=== PATIENT | female | born 1990 | race Caucasian/White ===

== ENCOUNTER → 2024-07-04 06:51 | Outpatient (REF) | payer BC, SELFPAY | LOC: PNTC 06:51 | PROVIDERS: ATTENDING PHYSICIAN Obstetrics & Gynecology | DX: Z36.0 Encounter for antenatal screening for chromosomal anomalies (principal); Z36.82 Encounter for antenatal screening for nuchal translucency | CPT/HCPCS: 36415; 76801; 76813 ==

== ENCOUNTER → 2024-09-02 15:22 | Outpatient (REF) | payer BC, SELFPAY | LOC: PNTC 15:22 | PROVIDERS: ATTENDING PHYSICIAN Obstetrics & Gynecology | DX: Z34.90 Encounter for supervision of normal pregnancy, unspecified, unspecified trimester (principal) | CPT/HCPCS: 76805; 76817 ==

== ENCOUNTER 2024-11-09 11:46 | Observation (INO) | payer BC, SELFPAY ==
[2024-11-09 12:00] VITALS: BP 107/75; BMI 30.1
[2024-11-09 12:41] LABS: Hematocrit 29.8 % (37.0-47.0); Hemoglobin 10.4 g/dL (12.0-16.0); Mean Corp Hgb Conc. 34.9 g/dL (33.0-37.0); Mean Corpuscular Hgb 30.7 pg (27.0-31.0); Mean Corpuscular Volume 87.9 fL (81.0-99.0); Mean Platelet Volume 9.2 fL (7.4-10.4); Platelet Count 311 10^3/uL (130-400); Red Blood Cell Count 3.39 10^6/uL (4.20-5.40); Red Cell Dist. Width 12.1 % (11.5-14.5); White Blood Cell Count 10.4 10^3/uL (4.8-10.8)
[2024-11-09 14:02] LABS: Urine Albumin Negative (Neg - Trace); Urine Bilirubin Negative (Negative); Urine Character Clear (Clear); Urine Color Yellow; Urine Glucose Negative (Negative); Urine Ketone Negative (Negative); Urine Leukocyte 3+ (Negative); Urine Nitrite Negative (Negative); Urine Occult Blood Negative (Negative); Urine Specific Gravity 1.005 (<1.030); Urine Urobilinogen Negative (Neg - 1+)
[2024-11-09] MEDS: LR 1000 IV (14:15)
[2024-11-09 14:27] LABS: Urine Urothelial Cell 0-2 /LPF (FEW)
[2024-11-09 14:28] LABS: Urine Red Blood Cell 0-2 /HPF (0-2)
[2024-11-09 14:29] LABS: Urine Bacteria Few (Negative)
== END 2024-11-09 15:39 | disposition home or self-care (01) ==
LOC: LDRP 11:46
PROVIDERS: ADMITTING PHYSICIAN Obstetrics & Gynecology; FAMILY PHYSICIAN Internal Medicine
DX: O46.93 Antepartum hemorrhage, unspecified, third trimester (principal); Z3A.30 30 weeks gestation of pregnancy
CPT/HCPCS: 76815; 81003; 81015; 85027; 85460; 86850; 86900; 86901; 87086; G0378

== ENCOUNTER 2024-12-26 08:54 | Inpatient (IN) | payer BC, SELFPAY ==
[2024-12-26 09:07] VITALS: BP 110/71; BMI 32.0
[2024-12-26] MEDS: LR 1000 IV ×3 (09:15→20:56)
[2024-12-26 10:50] LABS: Hematocrit 31.2 % (37.0-47.0); Hemoglobin 10.3 g/dL (12.0-16.0); Mean Corp Hgb Conc. 33.0 g/dL (33.0-37.0); Mean Corpuscular Volume 89.7 fL (81.0-99.0); Nucleated Red Blood Cells % 0 %; Platelet Count 296 10^3/uL (130-400); Red Cell Dist. Width 13.1 % (11.5-14.5)
[2024-12-26] MEDS: PITOCIN 30 UNITS/NSS 500 ML IV (15:08)
[2024-12-26] MEDS: PENICILLIN 110 UNITS IV (19:38)
[2024-12-26] MEDS: FENTANYL/BUPIVACAINE 100 EPIDURAL (20:37)
[2024-12-26] MEDS: SUBLIMAZE 100 MCG EPIDURAL (20:37)
[2024-12-27] MEDS: MOTRIN 600 MG PO ×4 (03:47→23:58)
[2024-12-27 06:15] LABS: Hematocrit 30.7 % (37.0-47.0); Hemoglobin 10.3 g/dL (12.0-16.0)
[2024-12-27] MEDS: FEOSOL 325 MG PO (08:17)
[2024-12-27] MEDS: PRENATAL PLUS 1 TABLET PO (08:17)
[2024-12-27] MEDS: COLACE 100 MG PO ×2 (08:17→19:37)
[2024-12-27 11:17] LABS: Syphilis/T. pallidum Ab Reflex Negative (Negative)
[2024-12-28] MEDS: MOTRIN 600 MG PO (08:12)
[2024-12-28] MEDS: PRENATAL PLUS 1 TABLET PO (08:12)
[2024-12-28] MEDS: COLACE 100 MG PO (08:12)
[2024-12-28] MEDS: FEOSOL 325 MG PO (08:12)
== END 2024-12-28 12:52 | disposition home or self-care (01) | DRG 807 ==
LOC: LDRP 08:54
PROVIDERS: ADMITTING PHYSICIAN Obstetrics & Gynecology
PROC: 10E0XZZ Delivery of Products of Conception, External Approach (ICD-10-PCS; 2024-12-26)
PROC: 0KQM0ZZ Repair Perineum Muscle, Open Approach (ICD-10-PCS; 2024-12-26)
DX: O42.02 Full-term premature rupture of membranes, onset of labor within 24 hours of rupture (principal); Z37.0 Single live birth; Z3A.37 37 weeks gestation of pregnancy; O70.1 Second degree perineal laceration during delivery; O76 Abnormality in fetal heart rate and rhythm complicating labor and delivery
CPT/HCPCS: 85014; 85018; 85025; 86780; 86850; 86900; 86901